=== PATIENT | female | born 1965 | race Caucasian/White ===

== ENCOUNTER 2024-12-05 19:30 | Emergency (ER) | payer MEDICARE, MEDICAID, SELFPAY ==
[2024-12-05 19:35] VITALS: BP 142/90; PULSE 115; TEMP 36.9; O2SAT 98; BMI 27.4
[2024-12-05 19:38] LABS: Glucometer 517 mg/dL (74-106)
--- NOTE | 2024-12-05 19:44 | ECG_ITS ---
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 Measurements Intervals [place] Rate: 84 P: 20 PA: 122 QRS: 32 QRSD: 78 T: 26 QT: 334 QTc: 374 Interpretive Statements 1100 Sinus rhythm 1470 with occasional supraventricular premature complexes 4068 Nonspecific Twave abnormality abnormal ECG No previous ECG available for comparison Electronically Signed On 12-05-2024 23:03:39 EDT by MARZENA BROUSSARD M.D.
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
[2024-12-05 20:05] LABS: Hematocrit 39.6 % (36.0-48.0); Hemoglobin 13.9 g/dL (12.0-16.0); Mean Corpuscular HGB Conc 35.1 g/dL (29.9-35.2); Mean Corpuscular Hemoglobin 31.5 pg (26.7-34.0); Mean Corpuscular Volume 89.8 fL (81.0-99.0); Mean Platelet Volume 10.3 fL (9.5-13.5); Platelet Count 256 10^3/uL (150-450); Red Blood Count 4.41 10^6/uL (4.20-5.40); White Blood Count 6.6 10^3/uL (4.0-11.0)
[2024-12-05 20:06] LABS: PCO2 VBG 45.6 mmHg (40.0-52.0); pH VBG 7.403 (7.330-7.430)
[2024-12-05 20:13] LABS: Acetone NEGATIVE (NEGATIVE)
[2024-12-05] MEDS: INSULIN REGULAR, HUMAN (100 UNIT/ML) 10 ML MDV 10 UNIT IV (20:13)
[2024-12-05] MEDS: 0.9 % SODIUM CHLORIDE 1,000 ML 1000 ML IV (20:13)
[2024-12-05 20:24] LABS: Alanine Aminotransferase 20 U/L (14-59); Albumin Level 3.4 g/dL (3.4-5.0); Alkaline Phosphatase 129 U/L (46-116); Anion Gap 11.7; Aspartate Amino Transferase <5 U/L (15-37); BUN Creatinine Ratio 15.1; Bilirubin Total 0.4 mg/dL (0.2-1.0); Calcium 9.4 mg/dL (8.5-10.1); Carbon Dioxide 28.2 mmol/L (21.0-32.0); Chloride 96 mmol/L (98-107); Estimated GFR (African America 44 (>=60 mL/min/1.73m^2); Estimated GFR (Non-African Ame 37 (>=60 mL/min/1.73m^2); Globulin 3.4 g/dL; Potassium 4.9 mmol/L (3.5-5.1); Sodium 131 mmol/L (136-145); Total Protein 6.8 g/dL (6.4-8.2)
[2024-12-05 20:29] LABS: Atypical Lymphocytes Abs Man 0.52; Eosinophils Absolute Manual 0.13 10^3/uL (0.00-0.70); Lymphocytes Absolute Manual 1.78 10^3/uL (1.20-3.80); Monocytes Absolute Manual 0.79 10^3/uL (0.30-0.80); Segmented Neut Absolute Manual 3.43 10^3/uL (1.4-6.5)
[2024-12-05 20:30] LABS: Glucose 535 mg/dL (74-106)
[2024-12-05 20:50] LABS: Glucometer 342 mg/dL (74-106)
== END 2024-12-05 21:18 | disposition home or self-care (01) ==
PROVIDERS: Emergency Provider Emergency Medicine; PCP Nurse Practitioner Family
DX: E11.65 Type 2 diabetes mellitus with hyperglycemia (principal); Z79.84 Long term (current) use of oral hypoglycemic drugs; B35.4 Tinea corporis
CPT/HCPCS: 36415; 80053; 81001; 82009; 82800; 84484; 85007; 85027; 93005; 96360; 99285; J1817

== ENCOUNTER 2025-04-14 19:04 | Emergency (ER) | payer MEDICARE, MEDICAID, SELFPAY ==
[2025-04-14 19:28] VITALS: BP 154/98; PULSE 88; TEMP 36.6; O2SAT 100; BMI 21.1
--- NOTE | 2025-04-14 20:12 | XR_ITS ---
The [address] [address] Patient Name: SARAN ALVAREZ MRN: [id number] date: 1965 Sex: F Assigned Patient Location: ER Current Patient Location: ER Accession/Order Number: [id number] Exam Date: 04/14/2025 20:20 Report Date: 04/14/2025 20:51 At the request of: STEVE CAPPS DO Procedure: XR knee LT 4V XR knee LT 4V 04/14/2025 8:27 PM SIGNS AND SYMPTOMS: ^injury 3 days ago-left knee pain ^Y PROTOCOL: 4 views of the left knee COMPARISON: None FINDINGS: There is mild narrowing of the medial weightbearing joint space of the left knee with spurring along the medial femoral condyle and medial tibial plateau. The patellofemoral joint space is preserved. No fracture or dislocation. No joint effusion or soft tissue swelling. XR/XR knee LT 4V IMPRESSION: No acute bony injury. Degenerative changes are noted in the medial weightbearing joint space. Impression dictated by: Rene Layne M.D. 04/14/2025 8:51 PM Dictation Location: [place] [address] Electronically authenticated by: [id number] Y Date: 04/14/2025 20:51
[2025-04-14 21:44] VITALS: BP 136/88; PULSE 102; O2SAT 99
--- NOTE | 2025-04-14 23:59 | ED_ITS ---
HPI HPI - General Adult General Chief complaint: Extremity Injury, Lower Stated complaint: INJURED L KNEE, SUGAR ISSUE Time Seen by Provider: 04/14/25 21:40 Source: patient Mode of arrival: walk-in Limitations: no limitations History of Present Illness HPI narrative: Patient is a 60-year-old female presenting to the emergency department for evaluation of left knee injury. Patient states that 2 days ago she bumped her knee on her wooden bed frame. Since then, she has had worsening pain in the left knee. She states she still able to ambulate. She denies any numbness/tingling in the lower extremities. No weakness in the lower extremity. She denies prior injuries or surgeries to the knee. She denies any other injuries. Related Data Home Medications ?Medication ?Instructions ?Recorded ?Confirmed labetalol 100 mg tablet 100 mg PO BID 12/05/2412/05 losartan 100 mg tablet 100 mg PO DAILY 12/05/2406/21 omeprazole 40 mg capsule,delayed 40 mg PO DAILY 12/05/24 release pravastatin 80 mg tablet 80 mg PO DAILY 12/05/2411/25 ropinirole 0.5 mg tablet 0.5 mg PO DAILY 12/05/2406/21 spironolactone 25 mg tablet 25 mg PO DAILY 12/05/24 Previous Rx's ?Medication ?Instructions ?Recorded insulin glargine 100 unit/mL (3 10 unit (0.1 mL) subcu t DAILY #15 04/14/25 mL) subcutaneous pen (Lantus mL Solostar U-100 Insulin) Allergies Allergy/AdvReac Type Severity Reaction Status Date / Time gabapentin Allergy Hives Verified 12/05/24 19:41 NSAIDS (Non-Steroidal Allergy Hives Verified 12/05/24 19:41 Anti-Inflamma Sulfa (Sulfonamide Allergy Hives Verified 12/05/24 19:44 Antibiotics) Review of Systems ROS Status of ROS 10 or more systems reviewed and unremark able except as noted in history and below PFSH PFSH Social History Little interest or pleasure in doing things: not at all Feeling down, depressed, or hopeless: not at all Exam Narrative Exam Narrative: CONSTITUTIONAL: Well-appearing, answering questions and following commands appropriately SKIN: Was warm and dry. EYES: Sclerae white. EARS, NOSE, THROAT: Moist oral mucosa. RESPIRATORY: Nonlabored respiration CARDIOVASCULAR: Normal rate and regular rhythm. GASTROINTESTINAL: Abdomen is nondistended. MUSCULOSKELETAL: There is tenderness to palpation throughout the lateral aspect of the left knee without overlying skin changes or ecchymosis. There is full range of motion in the throughout the left knee. The knee joint is stable through ligamentous testing including anterior/posterior drawer and varus/valgus stress test. Able to ambulate with a normal gait. There is no joint effusion or overlying erythema/induration/drainage/or other infectious changes. NEUROLOGIC: Patient is awake and alert. Equal strength and sensation to light touch in the bilateral lower extremities. Constitutional Vital Signs, click to edit/add: Last Vital Signs Temp 97.9 F 04/14/25 19:28 Pulse 102 H 04/14/25 21:44 Resp 18 04/14/25 21:44 BP 136/88 04/14/25 21:44 Pulse Ox 99 04/14/25 21:44 O2 Del Method Room Air 04/14/25 19:28 Course Vital Signs Vital signs: Vital Signs Temperature 97.9 F 04/14/25 19:28 Pulse Rate 88 04/14/25 19:28 Respiratory Rate 18 04/14/25 19:28 Blood Pressure 154/98 H 04/14/25 19:28 Pulse Oximetry 100 04/14/25 19:28 Oxygen Delivery Method Room Air 04/14/25 19:28 Temperature 97.9 F 04/14/25 19:28 Pulse Rate 102 H 04/14/25 21:44 Respiratory Rate 18 04/14/25 21:44 Blood Pressure 136/88 04/14/25 21:44 Pulse Oximetry 99 04/14/25 21:44 Oxygen Delivery Method Room Air 04/14/25 19:28 Medical Decision Making MDM Narrative Medical decision making narrative: Patient is a 60-year-old female presenting to the emergency department for evaluation of left knee injury sustained 2 days ago when she bumped it on a wooden bed frame. Her vital signs are within normal limits. She is afebrile and hemodynamically stable. Examination as noted above. The extremity is neurovascular intact. Differential diagnose includes knee contusion, ligamentous strain, fracture. X- rays were obtained. X-rays of the left knee independently reviewed and interpreted by myself and radiology demonstrated no acute osseous abnormalities. I do believe the patient is stable for discharge at this time. Patient's presentation is most likely consistent with bony contusion. They were instructed to follow up with her PCP for further. Return precautions were given including any new or worsening symptoms. Patient is requesting a refill on her Lantus 10 units nightly, which I did prescribe. Her POC glucose was 195. Patient understands and agrees to the plan. FINAL IMPRESSION: #Acute left knee contusion DISPOSITION: Discharged home CONDITION: Good Imaging Data left knee xray: Attestation: I personally reviewed and interpreted this imaging study as follows: Radiologist's impression: ITS Impressions Knee X-Ray 04/14/25 20:12 IMPRESSION: No acute bony injury. Degenerative changes are noted in the medial weightbearing joint space. Impression dictated by: Rene Layne M.D. 04/14/2025 8:51 PM Dictation Location: [facility] Electronically authenticated by: [id number] Y Date: 04/14/2025 20:51 Discharge Plan Discharge Chief Complaint: Extremity Injury, Lower Clinical Impression: Hyperglycemia due to type 2 diabetes mellitus, Contusion of knee, left Patient Disposition: Home, Self-Care Time of Disposition Decision: 22:08 Condition: Good Mode of Transportation: Private Vehicle Prescriptions / Home Meds: New insulin glargine [Lantus Solostar U-100 Insulin] 100 unit/mL (3 mL) insulin pen 10 unit subcut DAILY Qty: 15 0RF No Action losartan 100 mg tablet 100 mg PO DAILY labetalol 100 mg tablet 100 mg PO BID spironolactone 25 mg tablet 25 mg PO DAILY ropinirole 0.5 mg tablet 0.5 mg PO DAILY omeprazole 40 mg capsule,delayed release(DR/EC) 40 mg PO DAILY pravastatin 80 mg tablet 80 mg PO DAILY Print Language: Citizen [place] Instructions: Contusion in Adults (ED) Referrals: Physician,Non-Staff, MD [Primary Care Provider] - 1 week Discharge Date/Time: 04/14/25 22:17
== END 2025-04-14 22:17 | disposition home or self-care (01) ==
PROVIDERS: Emergency Provider Student in an Organized Health Care Education/Training Program
DX: S80.02XA Contusion of left knee, initial encounter (principal); W22.03XA Walked into furniture, initial encounter; E11.65 Type 2 diabetes mellitus with hyperglycemia; Z79.4 Long term (current) use of insulin
CPT/HCPCS: 73564; 99283